=== PATIENT | male | born 1990 | race Caucasian/White ===

== ENCOUNTER 2022-11-05 08:42 | Outpatient (OUT) | payer OTHER, SELFPAY ==
--- NOTE | 2022-11-05 08:58 | XR_ITS ---
[address] [address] Patient Name: ASHLEY BLANCO MRN: [id number] date: 1990 Sex: M Assigned Patient Location: RAD Current Patient Location: [facility] Accession/Order Number: [id number] Exam Date: 11/05/2022 09:10 Report Date: 11/05/2022 09:51 At the request of: NON-STAFF PHYSICIAN Procedure: XR shoulder RT min 2V EXAM: XR shoulder RT min 2V HISTORY: Arthritis M13.80 COMPARISON: None. TECHNIQUE: 3 views FINDINGS: No acute fracture or dislocation. No significant degenerative changes. Unremarkable soft tissues. XR/XR shoulder RT min 2V IMPRESSION: Unremarkable exam. Electronically authenticated by: HEATH CABEZAS Date: 11/05/2022 09:51
== END 2022-11-05 08:43 | disposition home or self-care (01) ==
DX: M13.80 Other specified arthritis, unspecified site (principal)
CPT/HCPCS: 73030